=== PATIENT | female | born 1935 | race Caucasian/White ===

== ENCOUNTER → 2016-05-28 | Outpatient (CLI) | payer MEDICARE ==
[~2016-05-28] MED LIST: ACET325T38 PO; AMPI500C9 PO; CALC-719 PO; CALCIUM-MAGNESIUM PO; CARV12.52 PO; CHOL100061 PO; CHOL2000 PO; COENZYME Q-10 PO; D-RIBOSE PO; DABI150C PO; DOCU-34 PO; ECHINACEA PO; ELDERBERRY PO; FLEET ENEMA PR; FURO-124 PO; GBPN300C PO; HYDR-3702 PO; KCL20TCR PO; LEVO112T5 PO; LOSA25TA2 PO; MAGN400O7 PO; MELA3TAB34 PO; MINO100C40 PO; MTC10T PO; OMG1KC PO; ONDN4T PO; OXYC-109 PO; OXYC1TAB87 PO; PANT40TA3 PO; SENN-126 PO; SENN-33 PO; TRAZ-28 PO; [UNRECOGNIZED DRUG - CODE] PO; [UNRECOGNIZED DRUG - OTHER] PO; [UNRECOGNIZED DRUG - OTHER] PO; [UNRECOGNIZED DRUG - OTHER] TOP
--- NOTE | 2016-05-28 16:22 | Diagnostic Imaging Report ---
TECHNIQUE: Grayscale, pulsed and color Doppler imaging of the left lower extremity. INDICATION: Left leg swelling x1 day. FINDINGS: The left common femoral, femoral and popliteal veins are patent without evidence of DVT. Visualized aspects of the proximal greater saphenous vein, posterior tibial and peroneal veins are also patent. All of the evaluated deep venous structures demonstrate normal compressibility and augmentation where applicable. IMPRESSION: No left lower extremity deep venous thrombosis (DVT). Dictated by: Dictated on workstation # [id number]
== END ==
LOC: RAD 15:09
PROVIDERS: ATTEND Family Medicine
DX: M79.662 Pain in left lower leg (principal)

== ENCOUNTER 2016-06-04 10:45 | Emergency (ER) | payer MEDICARE ==
[~2016-06-04] VITALS: Ht 162.6 cm; Wt 95.0 kg
[2016-06-04] MEDS ORDERED: ONDANSETRON 2 MG/ML (Z0FRAN) 2 ML VIAL IV ONE (11:10)
[2016-06-04] MEDS ORDERED: SODIUM CHLORIDE FLUSH 10 ML SYR IV PRN (11:10)
[2016-06-04] MEDS ORDERED: SODIUM CHLORIDE FLUSH 3 ML SYR IV PRN (11:10)
[2016-06-04] MEDS ORDERED: SODIUM CHLORIDE 250 ML IV PRN (11:10)
[2016-06-04] MEDS ORDERED: ASPIRIN 81 MG CHEW (CHILDREN'S ASA) PO ONE (11:10)
[2016-06-04] MEDS: NITROGLYCERIN SUBLINGUAL 0.4 MG (NITROQUICK) TABLET SL PRN ×3 (11:28→11:45)
--- NOTE | 2016-06-04 11:31 | NUR ---
DR RANDLE TALKS WITH DR ALEXY CABELLO PT (WHO HAS SEEN HIM BEFORE). ALSO SON AT BEDSIDE. CL
[2016-06-04 11:33] LABS: BASOPHILS % (AUTO) 1 % (0-2); EOSINOPHILS # (AUTO) 0.2 10^3uL; EOSINOPHILS % (AUTO) 4 % (0-4); LYMPHOCYTES # (AUTO) 1.6 X10^3; MEAN CORPUSCULAR HGB CONC 33.1 g/dL (31.0-37.0); MEAN PLATELET VOLUME 9.5 FL (6.0-9.5); MONOCYTES # (AUTO) 0.5 X10^3; MONOCYTES % (AUTO) 8 % (3-11); NEUTROPHILS # (AUTO) 3.5 X10^3; NEUTROPHILS % (AUTO) 59 % (51-67); PLATELET COUNT 229 10^3uL (150-450); WHITE BLOOD COUNT 5.85 10^3uL (4.0-11.0)
[2016-06-04 11:35] LABS: MEAN CORPUSCULAR HEMOGLOBIN 32.3 PG (26.0-34.0); MEAN CORPUSCULAR VOLUME 98 FL (80-100)
[2016-06-04 11:37] VITALS: BP 122/82
[2016-06-04 11:45] LABS: ALBUMIN 4.2 g/dL (3.4-5.0); ALKALINE PHOSPHATASE 83 U/L (38-126); ANION GAP 14.3 MEQ/L (3-15); BUN/CREATININE RATIO 15 (10-20); CALCULATED IONIZED CALCIUM 4.6 mg/dL (3.8-4.6); CREATINE KINASE 41 U/L (30-135); TOTAL PROTEIN 7.4 g/dL (6.4-8.5)
--- NOTE | 2016-06-04 11:45 | NUR ---
pt states she is unable to tell us how she feels or how she hurts, poor historian, does not tell facts to her history
== END 2016-06-04 13:45 | disposition short-term general hospital (02) ==
LOC: EDUNIT# 10:45 → ED 10:47
DX: R07.2 Precordial pain (principal); I10 Essential (primary) hypertension; E78.5 Hyperlipidemia, unspecified; Z91.14 Patient's other noncompliance with medication regimen
CPT/HCPCS: 36415; 71010; 80053; 82550; 82553; 84484; 85025; 85610; 85730; 93005; 99285; A9270; 93010

== ENCOUNTER → 2016-10-02 | Outpatient (CLI) | payer MEDICARE | LOC: RT 10:41 | PROVIDERS: ATTEND Internal Medicine | DX: I48.2 Chronic atrial fibrillation (principal) | CPT/HCPCS: 93005 ==